=== PATIENT | male | born 1985 | race American Indian/Alaskan Native ===

== ENCOUNTER 2019-10-08 10:49 | Emergency (ER) | payer SELFPAY ==
--- NOTE | 2019-10-08 11:25 | Event Note ---
ED Screening Note ED Screening Note: n/v/d that began last night no sick contact states he went to a [employer] restaurant no fever abd cramping PMHx none no allergies to meds non smoker non drinker This initial assessment/diagnostic orders/clinical plan/treatment(s) is/are subject to change based on patients health status, clinical progression and re- assessment by fellow clinical providers in the ED. Further treatment and workup at subsequent clinical providers discretion. Patient/guardian urged not to elope from the ED as their condition may be serious if not clinically assessed and managed. Initial orders include: labs
[2019-10-08 11:26] VITALS: BP 134/72
[2019-10-08 11:40] LABS: Hematocrit 48.5 % (35.5-45.6); Hemoglobin 16.8 gm/dl (11.8-15.2); Mean Corpuscular HGB Conc 35 % (32-34); Mean Corpuscular Volume 99 fl (84-94); Platelet Count 208 K/mm3 (140-440); Red Blood Count 4.89 M/mm3 (3.65-5.03); Red Cell Distribution Width 12.8 % (13.2-15.2)
[2019-10-08 12:00] LABS: Alanine Aminotransferase 35 units/L (7-56); Albumin 4.7 g/dL (3.9-5); BUN/Creatinine Ratio 23; Blood Urea Nitrogen 18 mg/dL (9-20); Hemolysis Index 20
[2019-10-08] MEDS ORDERED: ONDANSETRON 4 MG/2 ML INJ IV ONE (12:02)
[2019-10-08] MEDS ORDERED: SODIUM CHLORIDE 0.9% 1000 ML 1,000 ML IV ONE (12:02)
[2019-10-08] MEDS ORDERED: FAMOTIDINE 20 MG/2 ML INJ IV ONE (12:02)
--- NOTE | 2019-10-08 12:06 | Emergency Department Report ---
Vomiting/Diarrhea - HPI Chief Complaint: Nausea/Vomiting/Diarrhea Stated Complaint: VOMITING DIZZY Time Seen by Provider: 10/08/19 11:23 Duration: 1 Day Severity: mild Nausea/Vomiting Severity: Mild Diarrhea Severity: Mild Pain Severity: Mild Symptoms: Yes Watery Diarrhea, Yes Able to Tolerate Fluids, Yes Recent Unusual Foods (She came in lobster at a restaurant), No Bloody diarrhea, No Fever, No Recent Untreated Water, No Recent use of Antibiotics, No Family w/ Similar Symptoms, No Contacts w/ Similar Symptoms, No Rash, No Hematuria, No Recent URI Symptoms Other History: This is a 34-year-old male with no prior medical history who presents the ED complaining nausea vomiting diarrhea that began last night. Patient states prior to that he went out to a restaurant and had some chicken l obster nail. Patient states he has had abdominal cramping with the vomiting. Patient denies fever, chills, ED Review of Systems ROS: Stated complaint: VOMITING DIZZY Other details as noted in HPI Comment: All other systems reviewed and negative ED Past Medical Hx - Past Medical History Previous Medical History?: No - Surgical History Past Surgical History?: No - Social History Smoking Status: Never Smoker Substance Use Type: None - Medications Home Medications: Home Medications Medication Instructions Recorded Confirmed Last Taken Type Ondansetron [Zofran Odt] 4 mg PO Q6H PRN #10 tab.rapdis 12/31/13 Unknown Rx HYDROcodone/APAP 5-325 [[place] 1 each PO Q6HR PRN #5 tablet 08/26/14 Unknown Rx 5-325 mg TAB] Ondansetron [Zofran Odt] 4 mg PO Q8HR #20 tab.rapdis 10/08/19 Unknown Rx Vomiting Diarrhea Exam - Exam General: Vital signs noted. No distress. Alert and acting appropriately. HEENT: Yes Moist Mucous Membranes, No Pharyngeal Erythema, No Pharyngeal Exudates, No Rhinorrhea, No Conjuctival Injection, No Frontal Tenderness, No Maxillary Tenderness Neck: No Adenopathy, No Rigidity Lungs: Yes Clear Lung Sounds, Yes Good Air Exchange, No Wheezes, No Stridor, No Cough, No Nasal Flaring, No Retractions, No Use of Accessory Muscles Heart exam: Regular: Yes, Murmur: No, Tachycardia: No Abdomen: Tenderness: No, Peritoneal Signs: No, Distention: No, Hyperactive Bowel sounds: No Skin exam: Rash: No, Edema: No, Normal turgor: Yes Neurologic: Alert and oriented, no deficits. Musculoskeletal: Unremarkable. Exam: No active vomiting throughout ED stay ED Course Vital Signs 10/08/19 11:10 Temperature 97.7 F Pulse Rate 70 Respiratory 16 Rate Blood Pressure 134/72 O2 Sat by Pulse 100 Oximetry ED Medical Decision Making - Lab Data Result diagrams: 10/08/19 11:30 10/08/19 11:30 Laboratory Last Values WBC 11.6 K/mm3 (4.5-11.0) H 10/08/19 11:30 RBC 4.89 M/mm3 (3.65-5.03) 10/08/19 11:30 Hgb 16.8 gm/dl (11.8-15.2) H 10/08/19 11:30 Hct 48.5 % (35.5-45.6) H 10/08/19 11:30 MCV 99 fl (84-94) H 10/08/19 11:30 MCH 34 pg (28-32) H 10/08/19 11:30 MCHC 35 % (32-34) H 10/08/19 11:30 RDW 12.8 % (13.2-15.2) L 10/08/19 11:30 Plt Count 208 K/mm3 (140-440) 10/08/19 11:30 Seg Neutrophils % [employer] 10/08/19 11:30 Sodium 140 mmol/L (137-145) 10/08/19 11:30 Potassium 4.5 mmol/L (3.6-5.0) 10/08/19 11:30 Chloride 104.3 mmol/L (98-107) 10/08/19 11:30 Carbon Dioxide 20 mmol/L (22-30) L 10/08/19 11:30 Anion Gap 20 mmol/L 10/08/19 11:30 BUN 18 mg/dL (9-20) 10/08/19 11:30 Creatinine 0.8 mg/dL (0.8-1.5) 10/08/19 11:30 Estimated GFR > 60 ml/min 10/08/19 11:30 BUN/Creatinine Ratio 23 % 10/08/19 11:30 Glucose 127 mg/dL (75-100) H 10/08/19 11:30 Calcium 9.0 mg/dL (8.4-10.2) 10/08/19 11:30 Total Bilirubin 0.70 mg/dL (0.1-1.2) 10/08/19 11:30 AST 25 units/L (5-40) 10/08/19 11:30 ALT 35 units/L (7-56) 10/08/19 11:30 Alkaline Phosphatase 79 units/L (35-129) 10/08/19 11:30 Total Protein 8.3 g/dL (6.3-8.2) H 10/08/19 11:30 Albumin 4.7 g/dL (3.9-5) 10/08/19 11:30 Albumin/Globulin Ratio 1.3 % 10/08/19 11:30 Lipase 12 units/L (13-60) L 10/08/19 11:30 - Medical Decision Making 34-year-old male presents with mild gastroenteritis/food poisoning Discussed with patient hydrate increase Discussed Zofran use for nausea. Discussed to follow-up with primary care physician. Discussed if worsening symptoms return to the ED. Vital signs are normal patient is in no acute distress Critical care attestation.: If time is entered above; I have spent that time in minutes in the direct care of this critically ill patient, excluding procedure time. ED Disposition Clinical Impression: Acute gastroenteritis, Food poisoning Disposition: - TO HOME OR SELFCARE Is pt being admited?: No Does the pt Need Aspirin: No Condition: Stable Instructions: Food Poisoning (ED), Acute Nausea and Vomiting (ED) Additional Instructions: make sure to follow up with the primary care physician as discussed. Take all your medications as you've been prescribed. Increase hydration and liquid-based diet for the next couple days. If you have any worsening symptoms or develop new symptoms please return to ED immediately. Prescriptions: Ondansetron [Zofran Odt] 4 mg PO Q8HR #20 tab.rapdis Referrals: DONNIE VALENCIA MD [Primary Care Provider] - 3-5 Days [facility] [place] [facility] [place] - 3-5 Days [facility] [Outside] - 3-5 Days [facility] [Outside] - 3-5 Days Forms: Accompanied Note, Work/School Release Form(ED) Time of Disposition: 12:57
[2019-10-08 12:21] LABS: Eosinophils % (Manual) 0 % (0.0-4.3); Total Cells Counted 100
[2019-10-08 12:22] LABS: Platelet Estimate Consistent w Auto; RBC Morphology Normal
== END 2019-10-08 13:09 | disposition home or self-care (01) ==
LOC: ED 10:49
DX: A05.9 Bacterial foodborne intoxication, unspecified (principal); R11.2 Nausea with vomiting, unspecified; Z79.899 Other long term (current) drug therapy
CPT/HCPCS: 36415; 80053; 83690; 85007; 85025; 96361; 96374; 96375; 99283; J2405; J7030

== ENCOUNTER 2020-08-10 07:44 | Emergency (ER) | payer SELFPAY ==
[2020-08-10 08:07] VITALS: BP 148/76
[2020-08-10 08:33] LABS: Basophils % (Auto) 0.5 % (0.0-1.8); Eosinophils % (Auto) 0.5 % (0.0-4.3); Hematocrit 44.7 % (35.5-45.6); Hemoglobin 15.8 gm/dl (11.8-15.2); Lymphocytes # (Auto) 1.4 K/mm3 (1.2-5.4); Lymphocytes % (Auto) 23.4 % (13.4-35.0); Mean Corpuscular HGB Conc 35 % (32-34); Mean Corpuscular Volume 100 fl (84-94); Monocytes # (Auto) 0.6 K/mm3 (0.0-0.8); Monocytes % (Auto) 10.9 % (0.0-7.3); Platelet Count 202 K/mm3 (140-440); Red Blood Count 4.45 M/mm3 (3.65-5.03); Red Cell Distribution Width 13.1 % (13.2-15.2)
[2020-08-10 08:47] LABS: Alanine Aminotransferase 22 units/L (7-56); Albumin 4.5 g/dL (3.9-5); BUN/Creatinine Ratio 18; Blood Urea Nitrogen 18 mg/dL (9-20); Calcium 9.6 mg/dL (8.4-10.2); Hemolysis Index 6
[2020-08-10 09:27] LABS: Bilirubin,Urine NEG (Negative); Blood,Urine NEG (Negative); Color,Urine Amber (Yellow); Mucus,Urine 3+ /HPF
[2020-08-10] MEDS ORDERED: DICYCLOMINE 20 MG TAB PO ONE (10:00)
[2020-08-10] MEDS ORDERED: MORPHINE 4 MG/1 ML INJ IV ONE ×2 (10:00→11:05)
[2020-08-10] MEDS ORDERED: SODIUM CHLORIDE 0.9% 1000 ML 1,000 ML IV ONE (10:00)
[2020-08-10] MEDS ORDERED: FAMOTIDINE 20 MG/2 ML INJ IV ONE (10:00)
[2020-08-10] MEDS ORDERED: ONDANSETRON 4 MG/2 ML INJ IV ONE (10:00)
[2020-08-10] MEDS ORDERED: SODIUM CHLORIDE 0.9% 1000 ML 1,000 ML ONE (10:08)
--- NOTE | 2020-08-10 11:46 | Cat Scan Report ---
CT OF THE ABDOMEN AND PELVIS WITH INTRAVENOUS CONTRAST INDICATION / CLINICAL INFORMATION: Abdominal pain with nausea and vomiting. Left lower quadrant pain. TECHNIQUE: The patient received 100 cc Omnipaque [address] scans at this location are performed using CT dose reduction for ALARA by means of automated exposure control. COMPARISON: None available. FINDINGS: ABDOMEN: There is a delayed left nephrogram with mild left pelvocaliectasis and ureterectasis. There are a few tiny simple renal cysts bilaterally. The liver, spleen, gallbladder, bile ducts, pancreas, adrenal glands and bowel are normal. No adenopathy is seen. The lung bases are clear. PELVIS: The left ureter is mildly dilated to the ureterovesical junction. There is a 3 mm calculus at that site, best seen on axial image #596 of series #3. The distal right ureter, urinary bladder, pro state gland and seminal vesicles are normal. A normal appendix is present and there is no evidence of diverticulitis. No abnormal mass or fluid co llection is seen. There is a small fat-containing periumbilical hernia without complication. No acute osseous abnormality is noted. IMPRESSION: 3 mm calculus at the left ureterovesical junction is causing mild hydronephrosis. Signer Name: Manas Guadarrama MD Signed: 08/10/2020 11:42 AM Workstation Name: [id number]
[2020-08-10] MEDS ORDERED: KETOROLAC 30 MG/1 ML INJ IV ONE (12:14)
--- NOTE | 2020-08-10 12:15 | Emergency Department Report ---
ED Abdominal Pain HPI - General Chief Complaint: Abdominal Pain Stated Complaint: VOMITTING/BACK PAIN Source: patient Mode of arrival: Ambulatory Limitations: No Limitations - History of Present Illness Initial Comments: This is a 35-year-old male nontoxic, well nourished in appearance, no acute signs of distress presents to the ED with c/o of nausea and vomiting and abdominal pain several days. Patient describes vomiting as food content and yellow gastric acid. Patient describes abdominal pain as cramping and aching with level of 8/10 to left lower abdominal area with radiation to left flank. Patient denies chest pain, short of breath, fever, hemoptysis, blood in stool, chills, headache, stiff neck, numbness or tingling. Patient denies any diarrhea or constipation. Denies any blood in stool. Patient denies any recent travels. Patient denies any allergies or PMH. MD Complaint: abdominal pain -: days(s) Location: LLQ Radiation: L flank Migration to: no migration Severity: mild Severity scale (0 -10): 8 Quality: cramping, aching Consistency: constant Improves With: nothing Worsens With: nothing Associated Symptoms: nausea, vomiting. denies: diarrhea, fever, chills, constipation, dysuria, hematemesis, hematochezia, melena, hematuria, anorexia, syncope - Related Data Previous Rx's Medication Instructions Recorded Last Taken Type Ondansetron [Zofran Odt] 4 mg PO Q6H PRN #10 tab.rapdis 12/31/13 Unknown Rx HYDROcodone/APAP 5-325 [[place] 1 each PO Q6HR PRN #5 tablet 08/26/14 Unknown Rx 5-325 mg TAB] Ondansetron [Zofran Odt] 4 mg PO Q8HR #20 tab.rapdis 10/08/19 Unknown Rx Ketorolac [Toradol] 10 mg PO Q6H PRN #12 tablet 08/10/20 Unknown Rx Allergies Allergy/AdvReac Type Severity Reaction Status Date / Time No Known Allergies Allergy Unverified 12/31/13 07:30 ED Review of Systems ROS: Stated complaint: VOMITTING/BACK PAIN Other details as noted in HPI Constitutional: denies: chills, fever Eyes: denies: eye pain, eye discharge, vision change ENT: denies: ear pain, throat pain Respiratory: denies: cough, shortness of breath, wheezing Cardiovascular: denies: chest pain, palpitations Endocrine: no symptoms reported Gastrointestinal: abdominal pain, nausea, vomiting. denies: diarrhea, constipation, hematemesis, melena, hematochezia Genitourinary: denies: urgency, dysuria Musculoskeletal: denies: back pain, joint swelling, arthralgia Skin: denies: rash, lesions Neurological: denies: headache, weakness, paresthesias Psychiatric: denies: anxiety, depression Hematological/Lymphatic: denies: easy bleeding, easy bruising ED Past Medical Hx - Past Medical History Previous Medical History?: No - Surgical History Past Surgical History?: No - Social History Smoking Status: Never Smoker Substance Use Type: None - Medications Home Medications: Home Medications Medication Instructions Recorded Confirmed Last Taken Type Ondansetron [Zofran Odt] 4 mg PO Q6H PRN #10 tab.rapdis 12/31/13 Unknown Rx HYDROcodone/APAP 5-325 [[place] 1 each PO Q6HR PRN #5 tablet 08/26/14 Unknown Rx 5-325 mg TAB] Ondansetron [Zofran Odt] 4 mg PO Q8HR #20 tab.rapdis 10/08/19 Unknown Rx Ketorolac [Toradol] 10 mg PO Q6H PRN #12 tablet 08/10/20 Unknown Rx ED Physical Exam - General Limitations: No Limitations General appearance: alert, in no apparent distress - Head Head exam: Present: atraumatic, normocephalic - Eye Eye exam: Present: normal appearance - Neck Neck exam: Present: normal inspection, full ROM. Absent: tenderness, meningismus, lymphadenopathy - Respiratory Respiratory exam: Present: normal lung sounds bilaterally. Absent: respiratory distress, wheezes, rales, rhonchi, stridor, chest wall tenderness, accessory muscle use, decreased breath sounds, prolonged expiratory - Cardiovascular Cardiovascular Exam: Present: regular rate, normal rhythm, normal heart sounds. Absent: irregular rhythm, systolic murmur, diastolic murmur, rubs, gallop - GI/Abdominal GI/Abdominal exam: Present: soft, tenderness (left lower abdominal area), normal bowel sounds. Absent: distended, guarding, rebound, rigid, diminished bowel sounds - Extremities Exam Extremities exam: Present: normal inspection, full ROM, normal capillary refill. Absent: tenderness - Back Exam Back exam: Present: normal inspection, full ROM. Absent: tenderness, CVA tenderness (R), CVA tenderness (L), muscle spasm, paraspinal tenderness, vertebral tenderness, rash noted - Neurological Exam Neurological exam: Present: alert, oriented X3, normal gait - Psychiatric Psychiatric exam: Present: normal affect, normal mood - Skin Skin exam: Present: warm, dry, intact, normal color. Absent: rash ED Course Vital Signs 08/10/20 08/10/20 08/10/20 08:04 10:14 11:13 Temperature 97 F L Pulse Rate 56 L Respiratory 20 22 20 Rate Blood Pressure 148/76 [Left] O2 Sat by Pulse 100 Oximetry - Reevaluation(s) Reevaluation #1: 08/10/20 12:16 Patient is speaking in full sentences with no signs of distress noted. ED Medical Decision Making - Lab Data Result diagrams: 08/10/20 08:09 08/10/20 08:09 Lab Results 08/10/20 08/10/20 08/10/20 Range/Units 08:09 08:09 Unknown WBC 5.8 (4.5-11.0) K/mm3 RBC 4.45 (3.65-5.03) M/mm3 Hgb 15.8 H (11.8-15.2) gm/dl Hct 44.7 (35.5-45.6) % MCV 100 H (84-94) fl MCH 36 H (28-32) pg MCHC 35 H (32-34) % RDW 13.1 L (13.2-15.2) % Plt Count 202 (140-440) K/mm3 Lymph % (Auto) 23.4 (13.4-35.0) % [place] % (Auto) 10.9 H (0.0-7.3) % Eos % (Auto) 0.5 (0.0-4.3) % Baso % (Auto) 0.5 (0.0-1.8) % Lymph # (Auto) 1.4 (1.2-5.4) K/mm3 [place] # (Auto) 0.6 (0.0-0.8) K/mm3 Eos # (Auto) 0.0 (0.0-0.4) K/mm3 Baso # (Auto) 0.0 (0.0-0.1) K/mm3 Seg Neutrophils % 64.7 (40.0-70.0) % Seg Neutrophils # 3.7 (1.8-7.7) K/mm3 Sodium 136 L (137-145) mmol/L Potassium 3.9 (3.6-5.0) mmol/L Chloride 101.4 (98-107) mmol/L Carbon Dioxide 25 (22-30) mmol/L Anion Gap 14 mmol/L BUN 18 (9-20) mg/dL Creatinine 1.0 (0.8-1.3) mg/dL Estimated GFR > 60 ml/min BUN/Creatinine Ratio 18 % Glucose 146 H (75-100) mg/dL Calcium 9.6 (8.4-10.2) mg/dL Total Bilirubin 0.80 (0.1-1.2) mg/dL AST 21 (5-40) units/L ALT 22 (7-56) units/L Alkaline Phosphatase 75 (35-129) units/L Total Protein 8.1 (6.3-8.2) g/dL Albumin 4.5 (3.9-5) g/dL Albumin/Globulin Ratio 1.3 % Lipase 13 (13-60) units/L Urine Color Sada (Yellow) Urine Turbidity Clear (Clear) Urine pH 8.0 H (5.0-7.0) Ur Specific [place] 1.029 (1.003-1.030) Urine Protein 100 mg/dl (Negative) mg/dL Urine Glucose (UA) Neg (Negative) mg/dL Urine Ketones 20 (Negative) mg/dL Urine Blood Neg (Negative) Urine Nitrite Neg (Negative) Urine Bilirubin Neg (Negative) Urine Urobilinogen 4.0 (<2.0) mg/dL Ur Leukocyte Esterase Neg (Negative) Urine WBC (Auto) 1.0 (0.0-6.0) /HPF Urine RBC (Auto) 11.0 (0.0-6.0) /HPF U Epithel Cells (Auto) < 1.0 (0-13.0) /HPF Urine Mucus 3+ /HPF - Radiology Data Referring Physician: FAHEEM KOHLER Patient Name: JOSÉ MIGUEL ROSAS Date of : 1985 Sex: Male Report Date: 2020-08-10 Report Status: Finalized [facility] [address] [place] [address] Cat Scan Report Signed Patient: JOSÉ MIGUEL ROSAS MR#: [id number] : 1985 Acct:[id number] Age/Sex: 35 / M ADM Date: 08/10/20 Loc: ED Attending Dr: Ordering Physician: FAHEEM KOHLER NP Date of Service: 08/10/20 Procedure(s): CT abdomen pelvis w con Accession Number(s): [id number] cc: FAHEEM KOHLER NP CT OF THE ABDOMEN AND PELVIS WITH INTRAVENOUS CONTRAST INDICATION / CLINICAL INFORMATION: Abdominal pain with nausea and vomiting. Left lower quadrant pain. TECHNIQUE: The patient received 100 cc Omnipaque [address] scans at this location are performed using CT dose reduction for ALARA by means of automated exposure control. COMPARISON: None available. FINDINGS: ABDOMEN: There is a delayed left nephrogram with mild left pelvocaliectasis and ureterectasis. There are a few tiny simple renal cysts bilaterally. The liver, spleen, gallbladder, bile ducts, pancreas, adrenal glands and bowel are normal. No adenopathy is seen. The lung bases are clear. PELVIS: The left ureter is mildly dilated to the ureterovesical junction. There is a 3 mm calculus at that site, best seen on axial image #596 of series #3. The distal right ureter, urinary bladder, prostate gland and seminal vesicles are normal. A normal appendix is present and there is no evidence of diverticulitis. No abnormal mass or fluid collection is seen. There is a small fat-containing periumbilical hernia without complication. No acute osseous abnormality is noted. IMPRESSION: 3 mm calculus at the left ureterovesical junction is causing mild hydronephrosis. Signer Name: Manas Guadarrama MD Signed: 08/10/2020 11:42 AM Workstation Name: [id number] Transcribed By: RT Dictated By: Manas Guadarrama MD Electronically Authenticated By: Manas Guadarrama MD Signed Date/Time: 08/10/20 1142 DD/ 1137 TD/TT: - Medical Decision Making This is a 35-year-old male that presents with left kidney stonde. Patient is stable and was examined by me. Labs obtained. UA obtained. CT of abdomen obtained and dictated by the radiologist. Patient is notified of the report with no questions noted by the patient. Vital signs are stable prior to discharge. Patient received medical treatment in the ED which patient stated symptoms has resovled and subsided. Was instructed note to operate any machinery due to possible drowsiness and stated someone will drive the patient home. A by mouth challenge has been obtained and patient tolerated well with no nausea vomiting. Patient was also instructed to Follow-up with a primary care doctor in 3-5 days or if symptoms worsen and continue return to emergency room as soon as possible. At time of discharge, the patient does not seem toxic or ill in appearance. No acute signs of distress noted. Patient agrees to discharge treatment plan of care. No further questions noted by the patient. Critical care attestation.: If time is entered above; I have spent that time in minutes in the direct care of this critically ill patient, excluding procedure time. ED Disposition Clinical Impression: Renal calculus, left Disposition: DC-01 TO HOME OR SELFCARE Is pt being admited?: No Does the pt Need Aspirin: No Condition: Stable Instructions: Kidney Stones Additional Instructions: Follow-up with a primary care and urologist doctor in 3-5 days or if symptoms worsen and continue return to emergency room as soon as possible. Prescriptions: Ketorolac [Toradol] 10 mg PO Q6H PRN #12 tablet PRN Reason: Pain Referrals: CHAS CHARLES MD [Primary Care Provider] - 3-5 Days RACHAEL PHAN MD [Staff Physician] - 3-5 Days ALICJA WAITE MD [Staff Physician] - 3-5 Days Forms: Work/School Release Form(ED) Time of Disposition: 12:28
== END 2020-08-10 13:20 | disposition home or self-care (01) ==
LOC: ED 07:44
DX: N20.0 Calculus of kidney (principal); Z79.899 Other long term (current) drug therapy
CPT/HCPCS: 36415; 74177; 80053; 81001; 83690; 85025; 96361; 96374; 96375; 96376; 99284; J1885; J2270; J2405; J7030; Q9967